=== PATIENT | male | born 2000 | race Caucasian/White ===

== ENCOUNTER 2022-04-03 12:36 | Emergency (ER) | payer BC, SELFPAY ==
[2022-04-03 12:52] VITALS: BP 128/71; PULSE 63; RESP 18; O2SAT 98; BMI 23.2
[2022-04-03 13:15] VITALS: BP 118/78; PULSE 70; O2SAT 97
[2022-04-03 13:22] LABS: Basophils Percent Auto 0.8 % (0.0-3.0); Eosinophils Percent Auto 2.3 % (0.0-7.0); Hemoglobin* 14.3 gm/dL (13.5-17.5); Immature Granulocytes Abs Auto 0.01 K/uL (0.00-0.30); Lymphocytes Percent Auto 33.7 % (20-44); Mean Corpuscular HGB Conc 33 gm/dL (32-36); Mean Corpuscular Hemoglobin 29 pg (26-34); Mean Corpuscular Volume 88 fL (80-100); Monocytes Percent Auto 8.2 % (0.0-11.0); Neutrophils Percent Auto 54.7 % (42.0-72.0); Platelet Count* 271 K/uL (140-440); RDW Coefficient of Variation % 11.8 % (11.5-15.5); Red Blood Count 4.91 m/uL (4.30-5.90); White Blood Count* 3.89 K/uL (4.50-11.00)
--- NOTE | 2022-04-03 13:26 | ED_ITS ---
HPI - General Adult General Date Seen: 04/03/22 Chief complaint: Abdominal Pain Stated complaint: Abdominal pain Time Seen by Provider: 04/03/22 12:55 Source: patient and family History of Present Illness HPI narrative: Patient is a 21-year-old here with his mom for evaluation of some right-sided abdominal pain which has been present for 4 days. He was actually seen in clinic yesterday at the [facility]. They report that no tests were done there yesterday however, and he was told to come to the ER if his symptoms worsen. He tells me that he developed this right-sided abdominal pain in his lower abdomen on Tuesday. It has been there ever since, although he has more pressure in his abdomen today. His appetite has been normal. He has not had any nausea or vomiting. Bowel movements have been normal. No fever. No urinar y symptoms. His mom is concerned because there is a family history of appendicitis on her side. He says that it feels worse if he lays on his left side. He has not needed to take any medications for pain. Sometimes it goes completely away. Sometimes it is more sharp, other times it feels more like a pressure like there is a balloon in his abdomen. 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 Related Data Home Medications Medication Instructions Recorded Confirmed No Known Home Medications 04/03/22 04/03/22 Allergies Allergy/AdvReac Type Severity Reaction Status Date / Time No Known Drug Allergies Allergy Verified 04/03/22 12:51 Review of Systems Status of ROS: Reports: 10 or more systems reviewed and unremarkable except as noted in History and below [facility] Social History Smoking Status: Never smoker Second hand tobacco smoke exposure: No How often do you have a drink containing alcohol: never How often do you have six or more drinks on one occasion: Never AUDIT-C Alcohol total score: 0 Non-prescribed substance use: denies use Exam Narrative: Exam Narrative: Vital signs as noted above. In general, an alert, well-appearing patient. Head: Normocephalic, atraumatic. Eyes: Pupils are equal reactive. Extraocular movements are full. Conjunctivae are normal. ENT: Mucous membranes are moist. Throat is normal. Neck: Supple without lymphadenopathy. Heart: Regular rate and rhythm. No murmur or rub. Lungs: Clear bilaterally. No increased work of breathing, crackles or wheezes. Abdomen: Soft, flat, and completely nontender. No rebound guarding or rigidity. No organomegaly. Extremities: Well perfused. No edema. No calf tenderness. Pulses intact. Neurologic: Patient is alert and oriented to person and place. Speech is fluent. Face is symmetric. Moves all extremities equally. Affect: Normal. Skin: Warm and dry. Well perfused. Const: Vital Signs, click to edit/add: Vital Signs - 24 hr 04/03/22 12:52 04/03/22 13:15 04/03/22 13:30 Pulse Rate [Pulse Oximeter] 63 70 69 Respiratory Rate 18 Blood Pressure [Le ft Upper Arm] 128/71 118/78 126/76 Pulse Oximetry 98 97 98 04/03/22 14:06 04/03/22 14:30 Pulse Rate [Pulse Oximeter] 66 57 L Respiratory Rate Blood Pressure [Le ft Upper Arm] 124/75 122/73 Pulse Oximetry 97 97 Documenting provider has reviewed patient's vital signs: yes Course Course Hospital Course: Reviewed with the patient and his mom that with pain for 4 days and a nontender abdomen, my suspicion for appendicitis is quite low. However, given their ongoing concerns, we will go ahead and check some labs. Patient's CBC shows a mildly depressed white blood cell count of 3.8. CRP is normal. Urinalysis is negative. I do not strongly suspect UTI, kidney stone, pyelonephritis. He does not have any testicular pain. His abdomen is completely nontender. I do not suspect appendicitis as a cause for symptoms. Mesenteric adenitis is a possibility, particularly with his slight leukopenia. He does not note any other significant symptoms at this time, but we did discuss that if symptoms are persistent, or free develops any other symptoms, he may need further evaluation to look for inflammatory bowel disease. At this time, I think it is reasonable to let him go home, he can use some ibuprofen or Tylenol if needed. I anticipate this will probably improve on its own over the next few days, but if not, recommend follow up with primary care. Return to the ER for acute worsening, severe pain, vomiting, fever, bloody stools or other significant changes. Vital Signs Vital signs: Initial Vital Signs Temperature Source Temporal Artery Scan 04/03/22 12:52 Pulse Rate 63 04/03/22 12:52 Pulse Rhythm 04/03/22 12:52 Respiratory Rate 18 04/03/22 12:52 Blood Pressure 128/71 04/03/22 12:52 Blood Pressure Mean 90 04/03/22 12:52 Pulse Oximetry 98 04/03/22 12:52 Oxygen Delivery Method 04/03/22 12:52 Vital Signs Pulse Rate 63 04/03/22 12:52 Respiratory Rate 18 04/03/22 12:52 Blood Pressure 128/71 04/03/22 12:52 Pulse Oximetry 98 04/03/22 12:52 Pulse Rate 57 L 04/03/22 14:30 Respiratory Rate 18 04/03/22 12:52 Blood Pressure 122/73 04/03/22 14:30 Pulse Oximetry 97 04/03/22 14:30 Medical Decision Making Lab Data Labs: Lab Results 04/03/22 04/03/22 04/03/22 Range/Units 13:10 13:12 13:12 WBC 3.89 L (4.50-11.00) K/uL RBC 4.91 (4.30-5.90) m/uL Hgb 14.3 (13.5-17.5) gm/dL Hct 43.0 (37.0-53.0) % MCV 88 (80-100) fL MCH 29 (26-34) pg MCHC 33 (32-36) gm/dL RDW Coeff of Rob 11.8 (11.5-15.5) % Plt Count 271 (140-440) K/uL Neut % (Auto) 54.7 (42.0-72.0) % Lymph % (Auto) 33.7 (20-44) % Wilkinson % (Auto) 8.2 (0.0-11.0) % Eos % (Auto) 2.3 (0.0-7.0) % Baso % (Auto) 0.8 (0.0-3.0) % Neut # (Auto) 2.10 (1.7-7.0) K/uL Lymph # (Auto) 1.30 (0.90-2.90) K/uL Wilkinson # (Auto) 0.30 (0.00-0.90) K/UL Eos # (Auto) 0.10 (0.00-0.50) K/uL Baso # (Auto) 0.00 (0.00-0.30) K/uL Abs Immat Gran (auto) 0.01 (0.00-0.30) K/uL C-Reactive Protein < 0.5 L (0.5-1.0) mg/dL Urine Color Yellow (Yellow) Urine Appearance Clear (Clear) Urine pH 6.0 (5.0-8.5) Ur Specific [place] >= 1.030 (1.000-1.030) Urine Protein Negative (Negative) Urine Glucose (UA) Negative (Negative) Urine Ketones Negative (Negative) Urine Blood Negative (Negative) Urine Nitrite Negative (Negative) Urine Bilirubin Negative (Negative) Urine Urobilinogen 0.2 (0.2-1.0) Ur Leukocyte Esterase Negative (Negative) Urine RBC 0-2 (0-2) Urine WBC 0-2 (0-5) Ur Squamous Epith Cells None (None-Few) Urine Bacteria Few A (None) Discharge Plan Discharge Clinical Impression: Right lateral abdominal pain Patient Disposition: Home, Self-Care Condition: Stable Instructions: Abdominal Pain (ED) Additional Instructions: Ibuprofen or Tylenol as needed. If you have persistent pain, follow up with her primary doctor for re-evaluation in the next 1-2 weeks. Return for severe pain, vomiting, fever, bloody stools or other worsening. Prescriptions: No Action No Known Home Medications 0RF Follow Up/Referrals: Olive Gilbert MD [Staff Physician] - Stand Alone Forms: [facility] Info Instructions
[2022-04-03 13:30] VITALS: BP 126/76; PULSE 69; O2SAT 98
[2022-04-03 13:31] LABS: Slide Review Reflex No
[2022-04-03 13:47] LABS: C Reactive Protein* < 0.5 mg/dL (0.5-1.0)
[2022-04-03 13:57] LABS: Appearance Urine Clear (Clear); Bilirubin Urine Negative (Negative); Blood Urine Negative (Negative); Color Urine Yellow (Yellow); Glucose Urine Negative (Negative); Ketones Urine Negative (Negative); Leukocyte Esterase Urine Negative (Negative); Nitrite Urine Negative (Negative); Protein Urine Negative (Negative); Specific Gravity Urine >= 1.030 (1.000-1.030); Urobilinogen Urine 0.2 (0.2-1.0)
[2022-04-03 14:06] VITALS: BP 124/75; PULSE 66; O2SAT 97
[2022-04-03 14:11] LABS: RBC Urine 0-2 (0-2); WBC Urine 0-2 (0-5)
[2022-04-03 14:12] LABS: Bacteria Urine Few
[2022-04-03 14:30] VITALS: BP 122/73; PULSE 57; O2SAT 97
== END 2022-04-03 14:57 | disposition home or self-care (01) ==
PROVIDERS: Emergency Provider Emergency Medicine; PCP Family Medicine
DX: R10.9 Unspecified abdominal pain (principal)
CPT/HCPCS: 36415; 81001; 85025; 86140; 87086; 99282; 99283; 99284